=== PATIENT | female | born 1965 | race Caucasian/White ===

== ENCOUNTER 2017-02-02 19:08 | Emergency (ER) | payer OTHER, SELFPAY ==
--- NOTE | 2017-02-02 19:20 | ED ---
General Adult HPI - General Stated complaint: Chest Pain Time Seen by Provider: 02/02/17 19:17 Source: RN notes reviewed, old records reviewed - History of Present Illness Initial comments: This is a 31-year-old female here for reevaluation of chest pain. Chest pain shortness of breath and anxiety earlier today. Some indigestion as well. Patient does have history of high blood pressure. No prior history of heart disease or heart attack. Patient was able to walk off episode but is coming in [facility] for evaluation of chest pain - Related Data Home Medications Medication Instructions Recorded Confirmed Psyllium Husk 100% [Metamucil] 6 gm PO BID 08/12/15 02/02/17 Escitalopram Oxalate [Lexapro] 10 mg PO DAILY 02/02/17 02/02/17 Levothyroxine Sodium [Synthroid] 25 mcg PO DAILY 02/02/17 02/02/17 clonazePAM [KlonoPIN] 0.5 mg PO DAILY PRN 02/02/17 02/02/17 Allergies Allergy/AdvReac Type Severity Reaction Status Date / Time rofecoxib [From Vioxx] AdvReac Unknown Swelling Verified 02/02/17 19:18 Review of Systems ROS Statement: Those systems with pertinent positive or pertinent negative responses have been documented in the HPI. ROS Other: All systems not noted in ROS Statement are negative. Past Medical History Past Medical History: Blood Disorder, COPD, Fibromyalgia, GERD/Reflux, Osteoarthritis (OA), Thyroid Disorder Additional Past Medical History / Comment(s): MIGRAINES , PERFORATED BOWEL WITH COLOSTOMY & REVERSAL, HX OF KIDNEY STONES , HERNIATED DISC, "SLIGHT COPD", hx. clotting disorder-not sure what it's called-has never had any problems-sister has also History of Any Multi-Drug Resistant Organisms: None Reported Past Surgical History: Appendectomy, Bowel Resection, Cholecystectomy, Hernia Repair Additional Past Surgical History / Comment(s): BOWEL RESECTION w/COLOSTOMY ( SEPTEMBER 2014) AND REVERSAL (JAN 2015), D & C, LAPAROSCOPIES FOR PROBLEMS WITH INFERTILITY, 1 SALPINGECTOMY & OOPHERECTOMY. Past Anesthesia/Blood Transfusion Reactions: No Reported Reaction, Motion Sickness Additional Past Anesthesia/Blood Transfusion Reaction / Comment(s): CLAUSTROPHOBIA Past Psychological History: Anxiety, Depression Additional Psychological History / Comment(s): PAST HX OF ANXIETY/DEPRESSION WITH PAST SURGERY. NO PROBLEM NOW. Smoking Status: Former smoker Past Alcohol Use History: Occasional Additional Past Alcohol Use History / Comment(s): quit smoking 1999, smoked 20 years.SMOKED 1PPD. Past Drug Use History: None Reported - Past Family History Father Family Medical History: Myocardial Infarction ([place]) Additional Family Medical History / Comment(s): HIP REPLACEMNET, LOW BP Mother Family Medical History: Diabetes Mellitus Additional Family Medical History / Comment(s): DIVERTICULITIS,MIGRAINES. General Exam General appearance: alert, in no apparent distress Head exam: Present: atraumatic, normocephalic, normal inspection Eye exam: Present: normal appearance, PERRL, EOMI. Absent: scleral icterus, conjunctival injection, periorbital swelling ENT exam: Present: normal exam, mucous membranes moist Neck exam: Present: normal inspection. Absent: tenderness, meningismus, lymphadenopathy Respiratory exam: Present: normal lung sounds bilaterally. Absent: respiratory distress, wheezes, rales, rhonchi, stridor Cardiovascular Exam: Present: regular rate, normal rhythm, normal heart sounds. Absent: systolic murmur, diastolic murmur, rubs, gallop, clicks GI/Abdominal exam: Present: soft, normal bowel sounds. Absent: distended, tenderness, guarding, rebound, rigid Extremities exam: Present: normal inspection, full ROM, normal capillary refill. Absent: tenderness, pedal edema, joint swelling, calf tenderness Back exam: Present: normal inspection Neurological exam: Present: alert, oriented X3, CN II-XII intact Psychiatric exam: Present: normal affect, normal mood Skin exam: Present: warm, dry, intact, normal color. Absent: rash Course Vital Signs 02/02/17 02/02/17 19:14 20:22 Temperature 97.8 F Pulse Rate 77 84 Respiratory 16 18 Rate Blood Pressure 163/88 163/82 O2 Sat by Pulse 95 98 Oximetry - Reevaluation(s) Reevaluation #1: 02/02/17 20:53 Patient's asymptomatic at this point EKG Findings - EKG Comments: EKG Findings:: EKG shows normal sinus rhythm at 75, IA 150, QRS 84, QTC 433 Medical Decision Making - Medical Decision Making 51 female in the ER for evaluation of occurred earlier in the day, at this time is resolved and remained resolved, thinks maybe medication reaction CT negative lab work normal EKG and troponin are negative patient will be discharged home - Lab Data Result diagrams: 02/02/17 19:35 02/02/17 19:35 Lab Results 02/02/17 02/02/17 02/02/17 Range/Units 19:35 19:35 19:35 WBC 10.1 (3.8-10.6) k/uL RBC 5.14 (3.80-5.40) m/uL Hgb 16.1 H (11.4-16.0) gm/dL Hct 46.6 H (34.0-46.0) % MCV 90.5 (80.0-100.0) fL MCH 31.4 (25.0-35.0) pg MCHC 34.6 (31.0-37.0) g/dL RDW 12.4 (11.5-15.5) % Plt Count 287 (150-450) k/uL Neutrophils % 69 % Lymphocytes % 23 % Monocytes % 4 % Eosinophils % 2 % Basophils % 1 % Neutrophils # 7.0 (1.3-7.7) k/uL Lymphocytes # 2.4 (1.0-4.8) k/uL Monocytes # 0.4 (0-1.0) k/uL Eosinophils # 0.2 (0-0.7) k/uL Basophils # 0.1 (0-0.2) k/uL PT (9.0-12.0) sec INR (<1.2) APTT (22.0-30.0) sec D-Dimer (<0.60) mg/L FEU Sodium 140 (137-145) mmol/L Potassium 5.0 (3.5-5.1) mmol/L Chloride 103 (98-107) mmol/L Carbon Dioxide 27 (22-30) mmol/L Anion Gap 10 mmol/L BUN 10 (7-17) mg/dL Creatinine 0.79 (0.52-1.04) mg/dL Est GFR (MDRD) Af Amer >60 (>60 ml/min/1.73 sqM) Est GFR (MDRD) Non-Af >60 (>60 ml/min/1.73 sqM) Glucose 84 (74-99) mg/dL Calcium 10.3 H (8.4-10.2) mg/dL Magnesium 1.9 (1.6-2.3) mg/dL Total Bilirubin 0.6 (0.2-1.3) mg/dL AST 38 H (14-36) U/L ALT 45 (9-52) U/L Alkaline Phosphatase 93 (38-126) U/L Total Creatine Kinase 65 (30-135) U/L CK-MB (CK-2) 0.3 (0.0-2.4) ng/mL CK-MB (CK-2) Rel Index 0.5 Troponin I <0.012 (0.000-0.034) ng/mL Total Protein 8.6 H (6.3-8.2) g/dL Albumin 4.7 (3.5-5.0) g/dL Lipase 131 (23-300) U/L 02/02/17 Range/Units 19:35 WBC (3.8-10.6) k/uL RBC (3.80-5.40) m/uL Hgb (11.4-16.0) gm/dL Hct (34.0-46.0) % MCV (80.0-100.0) fL MCH (25.0-35.0) pg MCHC (31.0-37.0) g/dL RDW (11.5-15.5) % Plt Count (150-450) k/uL Neutrophils % % Lymphocytes % % Monocytes % % Eosinophils % % Basophils % % Neutrophils # (1.3-7.7) k/uL Lymphocytes # (1.0-4.8) k/uL Monocytes # (0-1.0) k/uL Eosinophils # (0-0.7) k/uL Basophils # (0-0.2) k/uL PT 10.3 (9.0-12.0) sec INR 1.0 (<1.2) APTT 21.4 L (22.0-30.0) sec D-Dimer 0.44 (<0.60) mg/L FEU Sodium (137-145) mmol/L Potassium (3.5-5.1) mmol/L Chloride (98-107) mmol/L Carbon Dioxide (22-30) mmol/L Anion Gap mmol/L BUN (7-17) mg/dL Creatinine (0.52-1.04) mg/dL Est GFR (MDRD) Af Amer (>60 ml/min/1.73 sqM) Est GFR (MDRD) Non-Af (>60 ml/min/1.73 sqM) Glucose (74-99) mg/dL Calcium (8.4-10.2) mg/dL Magnesium (1.6-2.3) mg/dL Total Bilirubin (0.2-1.3) mg/dL AST (14-36) U/L ALT (9-52) U/L Alkaline Phosphatase (38-126) U/L Total Creatine Kinase (30-135) U/L CK-MB (CK-2) (0.0-2.4) ng/mL CK-MB (CK-2) Rel Index Troponin I (0.000-0.034) ng/mL Total Protein (6.3-8.2) g/dL Albumin (3.5-5.0) g/dL Lipase (23-300) U/L - Radiology Data Radiology results: report reviewed (Chest x-ray CT chest negative for acute disease), image reviewed Disposition Clinical Impression: Atypical chest pain, Chest pain Disposition: HOME SELF-CARE Condition: Good Instructions: Chest Pain (ED) Referrals: Yvon Meraz DO [Primary Care Provider] - 1-2 days
[2017-02-02] MEDS ORDERED: RX INFO: IV CONTRAST WAS GIVEN 1 EACH MISC MISCELLANE PRN (19:43)
[2017-02-02 19:45] LABS: Basophils # (A) 0.1 k/uL (0-0.2); Basophils % (A) 1 %; CH 30.8; CHCM 34.2; Eosinophils # (A) 0.2 k/uL (0-0.7); Eosinophils % (A) 2 %; HCT 46.6 % (34.0-46.0); HDW 2.46; HGB 16.1 gm/dL (11.4-16.0); Luc # (Auto) 0.18; Luc % (Auto) 2; Lymphocytes # (A) 2.4 k/uL (1.0-4.8); Lymphocytes % (A) 23 %; MCH 31.4 pg (25.0-35.0); MCHC 34.6 g/dL (31.0-37.0); MCV 90.5 fL (80.0-100.0); Mean Platelet Volume 7.2; Monocytes # (A) 0.4 k/uL (0-1.0); Monocytes % (A) 4 %; Neutrophils % (A) 69 %; RBC 5.14 m/uL (3.80-5.40); RDW 12.4 % (11.5-15.5); WBC 10.1 k/uL (3.8-10.6); WBC (Perox) 9.69
[2017-02-02 19:56] LABS: ALT 45 U/L (9-52); AST 38 U/L (14-36); Alkaline Phosphatase 93 U/L (38-126); Anion Gap 10 mmol/L; Blood Urea Nitrogen 10 mg/dL (7-17); Calcium 10.3 mg/dL (8.4-10.2); Carbon Dioxide 27 mmol/L (22-30); Chloride 103 mmol/L (98-107); Glucose 84 mg/dL (74-99); Magnesium 1.9 mg/dL (1.6-2.3); Non-African American GFR(MDRD) >60 (>60 ml/min/1.73 sqM); Sodium 140 mmol/L (137-145); Total Bilirubin 0.6 mg/dL (0.2-1.3); Total Protein 8.6 g/dL (6.3-8.2)
--- NOTE | 2017-02-02 19:59 | XR ---
EXAMINATION TYPE: XR chest 2V DATE OF EXAM: 02/02/2017 COMPARISON: 12/20/2014 HISTORY: Chest pain TECHNIQUE: Frontal and lateral views of the chest are obtained. FINDINGS: There is no heart failure nor confluent pneumonic infiltrate. Heart size is normal. Medias tinum is normal. There is no pleural effusion. IMPRESSION: No active cardiopulmonary disease. There is clearing of mild atelectasis at left lung ba se compared to old exam.
[2017-02-02 20:11] LABS: Creatine Kinase 65 U/L (30-135)
[2017-02-02 20:24] LABS: Creatine Kinase MB 0.3 ng/mL (0.0-2.4); Troponin I <0.012 ng/mL (0.000-0.034)
--- NOTE | 2017-02-02 20:27 | CT ---
EXAMINATION TYPE: CT angio chest DATE OF EXAM: 02/02/2017 8:12 PM COMPARISON: 11/03/2014 HISTORY: Mid chest pain with shortness of breath CT DLP: 578.5 mGycm Automated exposure control for dose reduction was used. CONTRAST: CTA scan of the thorax is performed with IV Contrast, patient injected with 100 mL of Omnipaque 350, pulmonary embolism protocol. There are 3-D post processed images.. FINDINGS: There is mild reticular infiltrate in the anterior segment right upper lobe. There is minimal emphyse ma. There is no evidence of a pulmonary mass. There is mild reticular density in the lingula left upp er lobe. There is no pleural effusion. Heart size is normal. There is no pericardial effusion. I see no filling defects in the pulmonary arteries. There are no hilar masses. There is no mediastinal salvador opathy. There is no sign of aneurysm or dissection. IMPRESSION: NO EVIDENCE OF PULMONARY EMBOLISM. MILD SCARRING IN THE ANTERIOR RIGHT UPPER LOBE AND LINGULA LEFT UPPER LOBE THAT IS NOT SIGNIFICANTLY DIFFERENT THAN LAST EXAM. MINIMAL EMPHYSEMA.
[2017-02-02 20:34] LABS: Partial Thromboplastin Time 21.4 sec (22.0-30.0); Prothrombin Time 10.3 sec (9.0-12.0)
[2017-02-02 20:41] VITALS: RESP 18
[2017-02-02 21:08] VITALS: BP 152/74; PULSE 66; TEMP 97.7
== END 2017-02-02 21:08 | disposition home or self-care (01) ==
LOC: EC 19:08
DX: R07.89 Other chest pain (principal); R06.02 Shortness of breath; K30 Functional dyspepsia; F41.9 Anxiety disorder, unspecified; E07.9 Disorder of thyroid, unspecified; F32.9 Major depressive disorder, single episode, unspecified; Z87.891 Personal history of nicotine dependence; Z79.899 Other long term (current) drug therapy; Z88.6 Allergy status to analgesic agent; Z90.49 Acquired absence of other specified parts of digestive tract; Z82.49 Family history of ischemic heart disease and other diseases of the circulatory system
CPT/HCPCS: 36415; 93005; 85379; 80053; 82550; 82553; 83690; 83735; 84484; 85025; 85610; 85730; 71020; 71275; 99285; Q9967

== ENCOUNTER → 2017-03-14 | Outpatient (CLI) | payer OTHER ==
--- NOTE | 2017-03-14 08:30 | MM ---
Reason for exam: additional evaluation requested from prior study. Last mammogram was performed 1 year ago. History: Patient is postmenopausal and had first child at age 30. Benign right mammotome panel of the right breast, April 10, 2012. Cyst aspiration of the left breast. Took estrogen for 10 years. Physical Findings: Nurse did not find any significant physical abnormalities on exam. MG Diagnostic Mammo w CAD DAGOBERTO Bilateral CC and MLO view(s) were taken. Prior study comparison: March 26, 2016, bilateral MG diagnostic mammo w CAD DAGOBERTO. February 25, 2015, bilateral MG diagnostic mammo w CAD DAGOBERTO. March 24, 2012, [facility] DIGITAL RIGHT MAMMOGRAM w/CAD. March 16, 2012, bilateral digital screening mammo w/CAD. There are scattered fibroglandular densities. No significant new findings when compared with previous films. These results were verbally communicated with the patient and result sheet given to the patient on 03/14/17. ASSESSMENT: Negative, BI-RAD 1 RECOMMENDATION: Routine screening mammogram of both breasts in 1 year.
== END | disposition home or self-care (01) ==
LOC: RADMAMWWP 07:19
PROVIDERS: ATTEND Family Medicine
DX: R92.2 Inconclusive mammogram (principal)

== ENCOUNTER 2017-03-23 08:05 | Day surgery (SDC) | payer OTHER ==
[2017-03-21 13:05] VITALS: BMI 40.2
[~2017-03-23 08:05] MED LIST: LACTATED RINGERS 1,000 ML IV SCH; LIDOCAINE 1% 20 ML VIAL (10MG/ML) FOR IV START INTRADERMA PRN
[2017-03-23 08:30] VITALS: RESP 16; TEMP 97
[2017-03-23] MEDS ORDERED: PROPOFOL 10 MG/ML 20 ML VIAL IV ONE (08:50)
[2017-03-23] MEDS ORDERED: LIDOCAINE 1% INJ 10MG/ML (20 ML MDV) ONE (08:50)
--- NOTE | 2017-03-23 09:07 | P.OP ---
Date of Procedure: 03/23/17 Preoperative Diagnosis: Morbid obesity BMI 40.2 Recurrent incisional hernia Postoperative Diagnosis: Same Procedure(s) Performed: EGD with biopsy Implants: NA Anesthesia: MAC Surgeon: Pema Wick Pathology: other Condition: stable Disposition: PACU Indications for Procedure: 52 years old female with morbid obesity BMI 40.2 presents for EGD for bariatric surgery evaluation Description of Procedure: A timeout was performed to verify the correct patient and correct procedure. Patient was on continuous vitals and pulse ox monitoring throughout the procedure. She was placed in lateral decubitus position and an oral bite block was inserted. A well-lubricated Olympus upper endoscope was passed orally. The esophagus was intubated without difficulty. The vocal cords were visualised and protected at all times. The endoscope was passed beyond the pylorus into the first and second portion of the duodenum. No abnormality was noted in the duodenum mucosa. Two random biopsies were taken from the gastric antrum using cold biopsy forceps. The scope was then retroflexed. Small hiatal was noted which is Hill Grade I. No mass, active ulcer or bleeding stigmata noted within the gastric lumen. Mild diffuse gastritis noted The GE junction is measured at 36 cm from the incisors and diaphragmatic impression at 34 cm No evidence of reflux esophagitis.Biopsy taken from GE junction using cold biopsy forceps. The endoscope was gradually withdrawn. No abnormality was identified in the esophagus. Patient tolerated the procedure well and was taken to post anesthesia care unit in stable condition. FINAL DIAGNOSIS: MILD gastritis Hill Grade 1 Hiatal hernia SPECIMEN: Antral biopsy GE junction bx Final Pathologic Diagnosis A. GASTRIC ANTRUM, BIOPSY: MINIMAL CHRONIC GASTRITIS. IMMUNOPEROXIDASE STAIN NEGATIVE FOR HELICOBACTER PYLORI ORGANISMS (CONTROLS APPROPRIATE). B. GASTROESOPHAGEAL JUNCTION, BIOPSY: MATURE SQUAMOUS MUCOSA WITH FEATURES OF MILD CHRONIC ESOPHAGITIS. ADJACENT GASTRIC GLANDULAR MUCOSA WITH MILD CHRONIC INFLAMMATION. NEGATIVE FOR INTESTINAL METAPLASIA.
[2017-03-23 09:40] VITALS: BP 120/73; PULSE 71
== END 2017-03-23 10:04 | disposition home or self-care (01) ==
LOC: ORWHC2ENDO 08:05
PROVIDERS: ATTEND Surgery
DX: E66.01 Morbid (severe) obesity due to excess calories (principal); Z68.41 Body mass index [BMI] 40.0-44.9, adult; K44.9 Diaphragmatic hernia without obstruction or gangrene; E07.9 Disorder of thyroid, unspecified; K29.50 Unspecified chronic gastritis without bleeding; F32.9 Major depressive disorder, single episode, unspecified; K43.2 Incisional hernia without obstruction or gangrene; J44.9 Chronic obstructive pulmonary disease, unspecified; K21.0 Gastro-esophageal reflux disease with esophagitis; F41.9 Anxiety disorder, unspecified; Z88.8 Allergy status to other drugs, medicaments and biological substances; Z87.891 Personal history of nicotine dependence; Z79.899 Other long term (current) drug therapy
CPT/HCPCS: 43239; 88305; 88342; J2001; J2704

== ENCOUNTER → 2017-04-18 | Outpatient (CLI) | payer OTHER ==
[2017-04-18 08:33] VITALS: BP 149/77; PULSE 86; RESP 16; TEMP 98.1; BMI 41.4
--- NOTE | 2017-04-18 09:08 | P.GSHP ---
History of Present Illness H&P Date: 04/18/17 52 yrs old female presents with recurrent incisional hernia.CT scan from 2015 reviewed. Libby procedure with colostomy reversal in 2014. Lap lysis of adhesions and hernia repair in 08/[address] West.Prior cholecystectomy. No bowel obstruction. No abdominal pain. Unable to maintain sustained weight loss with diet and lifestyle changes . S/P EGD Preop Visit #1 , 03/14/17, weight 105.86KG, BMI 42 Preop visit#2, 04/18/17, weight 104.49 KG, BMI 41.5 - Review of Systems Comment: Constitutional: No fever, chills or rigors. No weight loss or loss of appetite. HEENT: No difficulty with hearing, vision and swallowing. Lymphatic: No axillary, inguinal and cervical swellings. Endocrine: Hypothyroidism. Denies history of diabetes. Respiratory: No chest pain, shortness of breath, and cough. No hemoptysis. Cardiovascular: No palpitations, irregular HR Gastrointestinal: Denies heartburn. No change in bowel habits. No nausea or vomiting. Genitourinary: No increase in urinary frequency or urgency. No hematuria. Musculoskeletal: No back pain, joint stiffness or pain. Neurologic: No history of seizure disorder and headaches. Psychiatric: Denies depression or anxiety . No suicidal ideation. Hematologic: Denies any abnormal mucosal bleeding or easy bruising. Past Medical History Past Medical History: Blood Disorder, COPD, Fibromyalgia, GERD/Reflux, Osteoarthritis (OA), Thyroid Disorder Additional Past Medical History / Comment(s): PAST HX OF MIGRAINES., DIVERTICULITIS WITH PERFORATED BOWEL & COLOSTOMY & REVERSAL, HX OF KIDNEY STONES , HERNIATED DISC, "MILD COPD", MTHFR GENE- NO HX OF BLOOD CLOTS BUT STATES SHE IS HAS APPT WITH DR. HAIDER. SISTER HAS MTHFR ALSO. , STATES INCISIONAL HERNIA LEFT LOWER ABD. History of Any Multi-Drug Resistant Organisms: None Reported Past Surgical History: Appendectomy, Bowel Resection, Cholecystectomy, Hernia Repair Additional Past Surgical History / Comment(s): BOWEL RESECTION w/COLOSTOMY ( SEPTEMBER 2014) AND REVERSAL (JAN 2015), D & C, LAPAROSCOPIES FOR PROBLEMS WITH INFERTILITY, 1 SALPINGECTOMY & BOTH OVARIES REMOVED. Past Anesthesia/Blood Transfusion Reactions: No Reported Reaction, Motion Sickness Additional Past Anesthesia/Blood Transfusion Reaction / Comment(s): CLAUSTROPHOBIA Past Psychological History: Anxiety Additional Psychological History / Comment(s): PAST HX OF ANXIETY/DEPRESSION WITH PAST SURGERY. NO PROBLEM NOW. Smoking Status: Former smoker Past Alcohol Use History: Occasional Additional Past Alcohol Use History / Comment(s): quit smoking 1999, smoked 20 years.SMOKED 1PPD. Past Drug Use History: None Reported - Past Family History Sister(s) Family Medical History: Blood Disorder, Myocardial Infarction ([place]) Additional Family Medical History / Comment(s): MTHFR BLOOD DISORDER Father Family Medical History: Myocardial Infarction ([place]) Additional Family Medical History / Comment(s): HIP REPLACEMNET, LOW BP Mother Family Medical History: Diabetes Mellitus Additional Family Medical History / Comment(s): DIVERTICULITIS,MIGRAINES. Medications and Allergies Home Medications Medication Instructions Recorded Confirmed Type Psyllium Husk 100% [Metamucil] 6 gm PO BID 08/12/15 03/21/17 History Escitalopram Oxalate [Lexapro] 10 mg PO DAILY 02/02/17 03/21/17 History Levothyroxine Sodium [Synthroid] 25 mcg PO DAILY 02/02/17 03/21/17 History clonazePAM [KlonoPIN] 0.5 mg PO DAILY PRN 02/02/17 03/21/17 History Multivitamins, Thera [Multivitamin 1 tab PO DAILY 03/21/17 03/21/17 History (formulary)] Turmeric (Unknown Dose) 1 tab PO DAILY 03/21/17 History Pantoprazole Sodium [Protonix] 40 mg PO DAILY #30 tablet. 03/23/17 Rx Allergies Allergy/AdvReac Type Severity Reaction Status Date / Time rofecoxib [From Vioxx] AdvReac Unknown Swelling Verified 03/23/17 08:24 Surgical - Exam Vital Signs Temp Pulse Resp BP 98.1 F 86 16 149/77 04/18/17 08:29 04/18/17 08:29 04/18/17 08:29 04/18/17 08:29 Patient is a 52-year-old female. Constitutional: General Appearance: healthy-appearing, well-nourished, and well- developed. Level of Distress: NAD. Ambulation: ambulating normally. Psychiatric: Insight: good judgement. Orientation: to time, place, and person. Head: Head: normocephalic and atraumatic. Eyes: Lids and Conjunctivae: no discharge or pallor and non-injected. Sclerae: non-icteric. ENMT: Oropharynx: moist mucous membranes. Abdomen: Bowel Sounds: normal. Inspection and Palpation: no tenderness or guarding and soft and non-distended. Hernia: incisional. Musculoskeletal:: Motor Strength and Tone: normal and normal tone. Joints, Bones , and Muscles: normal movement of all extremities. Extremities: no cyanosis or edema. Neurologic: Gait and Station: normal gait and station. Cranial Nerves: grossly intact. Assessment and Plan (1) Morbid obesity with BMI of 40.0-44.9, adult Current Visit: No Status: Acute Code(s): E66.01 - MORBID (SEVERE) OBESITY DUE TO EXCESS CALORIES; Z68.41 - BODY MASS INDEX (BMI) 40.0-44.9, ADULT SNOMED Code(s): 787734873 Plan: 1. Vitamin D deficiency 2. Pysch eval- no contraindication for sx 3. Supervised weight loss 4. Mammogram normal 5. No sleep study - no signs of sleep apnea 6. EGD with bx- no intestinal metaplasia 7. Plan for weightloss surgery i.e sleeve gastrectomy for usp weight loss followed by hernia repair as a second stage procedure 8. Informed consent obtained. Risks, benefits and potential complications discussed including bleeding, infection, leak, stenosis, stricture, DVT, PE, portal vein thrombosis and all indicated procedure and she elected to undergo lap sleeve gastrectomy possible open with lysis of adhesions
== END | disposition home or self-care (01) ==
LOC: BARWHC3 08:08
PROVIDERS: ATTEND Surgery
DX: E66.01 Morbid (severe) obesity due to excess calories (principal); Z68.41 Body mass index [BMI] 40.0-44.9, adult; K21.9 Gastro-esophageal reflux disease without esophagitis; J44.9 Chronic obstructive pulmonary disease, unspecified; M79.7 Fibromyalgia; F41.9 Anxiety disorder, unspecified; Z79.899 Other long term (current) drug therapy
CPT/HCPCS: 97804; 99211

== ENCOUNTER → 2017-05-26 | Outpatient (CLI) | payer OTHER ==
[2017-05-26 14:51] VITALS: BMI 38.6
== END | disposition home or self-care (01) ==
LOC: BARWHC3 14:00
PROVIDERS: ATTEND Surgery
DX: E66.01 Morbid (severe) obesity due to excess calories (principal); Z68.38 Body mass index [BMI] 38.0-38.9, adult
CPT/HCPCS: 97803

== ENCOUNTER → 2017-06-21 | Outpatient (CLI) | payer BC, OTHER ==
[2017-06-21 13:31] VITALS: BMI 37.8
== END | disposition home or self-care (01) ==
LOC: BARWHC3 12:41
PROVIDERS: ATTEND Surgery
DX: E66.01 Morbid (severe) obesity due to excess calories (principal); Z68.37 Body mass index [BMI] 37.0-37.9, adult
CPT/HCPCS: 97803

== ENCOUNTER → 2017-09-14 | Outpatient (CLI) | payer BC ==
[2017-09-14 14:59] VITALS: BMI 37.0
[2017-09-14 15:15] VITALS: BP 136/88; PULSE 86; RESP 16; TEMP 98.4
--- NOTE | 2017-10-01 21:12 | P.PN ---
Subjective Progress Note Date: 09/14/17 DATE OF SERVICE: 09/14/2017 REASON FOR VISIT: Status post sleeve gastrectomy HISTORY OF PRESENT ILLNESS: Ashly Serrano is a 52-year-old male who is status post sleeve gastrectomy 05/16/[address] Wick. She is 4 months postop. No reports of abdominal pain. No reports of nausea and vomiting. She reports past history of bowel perforation with colostomy including having a cholecystectomy and previous hernia surgery. She reports new swelling at the left lower abdomen from her previous colostomy. No reports of gastroesophageal reflux disease. She is concerned of a hernia. Her highest recent weight was 234 pounds. Her body mass index was 42.1. At height of 5 feet 2.5 inches, ideal body weight is 135 pounds. She comes in 205 pounds. Body mass index is 37.0. Percent excess weight loss 29%. Lifetime weight loss 28 pounds. She has lost 4 pounds in 3 months. She is 70 pounds overweight. PAST MEDICAL HISTORY: 1. Morbid obesity. 2. Body mass index of 42.1 3. Hypothyroidism 4. Depression 5. Chronic pain syndrome 6. Chronic obstructive pulmonary disease 7. Gastroesophageal reflux disease 8. Migraines 9. Diverticulitis 10. Kidney stones 11. Degenerative joint disease 12. MTHFR blood disorder 13. Neurological disorder 14. Fibromyalgia 15. Osteoarthritis 16. Claustrophobia 17. Depression PAST SURGICAL HISTORY: 1. Appendectomy 2. Colon resection 3. Colostomy reversal 4. Cholecystectomy 5. Hernia repair 6. D&C 7. Oophorectomy HOME MEDICATIONS: 1. Metamucil 2. Multivitamin 3. Synthroid 4. [place] 5. Lexapro ALLERGIES: Refocoxib SOCIAL HISTORY: No active tobacco use. Past tobacco use. FAMILY HISTORY: No family history of ulcerative colitis disease or Crohn's disease. Family history of morbid obesity. No lupus in the family. No reports of stomach or esophageal cancer. Family history of diabetes type 2. History of cardiac disease. REVIEW OF ORGAN SYSTEMS: CONSTITUTIONAL: Her highest recent weight was 234 pounds. Her body mass index was 42.1. At height of 5 feet 2.5 inches, ideal body weight is 135 pounds. She comes in 205 pounds. Body mass index is 37.0. Percent excess weight loss 29%. Lifetime weight loss 28 pounds. She has lost 4 pounds in 3 months. She is 70 pounds overweight. HEENT: Denies any active troubles with vision or hearing. No troubles with swallowing. ENDOCRINE: No diabetes. No hypothyroidism. CARDIOVASCULAR: No reports of palpitations or heart attacks or chest pain. RESPIRATORY: No obstructive sleep apnea. No asthma. GI: Denies any bright red blood per rectum. No diarrhea or constipation. MUSCULOSKELETAL: Has lower back pain and joint pain. Has osteoarthritis of the knees. NEURO: No headaches. No seizure disorders. PSYCH: No depression or suicidal ideation. RHEUMATOLOGIC: No lupus. No rheumatoid arthritis. HEMATOLOGIC: Denies any abnormal bleeding or bruising. No personal history of DVTs. SKIN: No rash. No skin cancer. PHYSICAL EXAM: VITAL SIGNS: Height 5 foot 2.5 inches, weight 205 pounds. BMI 37.0 Vital Signs Temp 98.4 F 09/14/17 15:11 Pulse 86 09/14/17 15:11 Resp 16 09/14/17 15:11 BP 136/88 09/14/17 15:11 Pulse Ox GENERAL: Well-developed in no acute distress. HEENT: No scleral icterus. Extraocular movements grossly intact. Hears conversational speech. No nasal drainage. NECK: Supple without lymphadenopathy. CHEST: Nonlabored respirations with equal bilateral excursions. CARDIOVASCULAR: Regular rate and regular rhythm. Distal 2+ pulses. ABDOMEN: Obese, soft, nontender, nondistended. Left lower quadrant incisional hernia. MUSCULOSKELETAL: No clubbing, cyanosis. Gross strength 5/5 distal lower extremities. No pre-tibial pitting edema. NEURO: No focal or lateralizing signs. Cranial nerves 2 through 12 grossly within normal limits. PSYCH: Appropriate affect. Alert and oriented to person, place and time. SKIN: Good skin turgor. Well perfused. ASSESSMENT: 1. Morbid obesity. 2. Body mass index of 42.1 to 37.0 3. Hypothyroidism 4. Depression 5. Chronic pain syndrome 6. Chronic obstructive pulmonary disease 7. Gastroesophageal reflux disease 8. Migraines 9. Diverticulitis 10. Kidney stones 11. Degenerative joint disease 12. MTHFR blood disorder 13. Neurological disorder 14. Fibromyalgia 15. Osteoarthritis 16. Claustrophobia 17. Depression 18. Epigastric abdominal pain 19. Incisional hernia, left lower quadrant 20. Status post sleeve gastrectomy PLAN: 1. Recommend bariatric metabolic panel 2. Recommend incisional hernia repair left lower quadrant. Robotic-assisted approach described. 3. Recommend CT of the abdomen and pelvis to evaluate for incarcerated intestine 4. DVT prophylaxis 5. Antibiotic prophylaxis Objective - Vital Signs Vital signs: Intake & Output 09/13/17 09/14/17 09/14/17 18:59 06:59 18:59 Weight 93.349 kg
== END | disposition home or self-care (01) ==
LOC: BARWHC3 14:38
PROVIDERS: ATTEND Surgery Plastic and Reconstructive Surgery
DX: Z48.815 Encounter for surgical aftercare following surgery on the digestive system (principal); E66.01 Morbid (severe) obesity due to excess calories; E03.9 Hypothyroidism, unspecified; F32.9 Major depressive disorder, single episode, unspecified; G89.4 Chronic pain syndrome; J44.9 Chronic obstructive pulmonary disease, unspecified; K21.9 Gastro-esophageal reflux disease without esophagitis; G43.909 Migraine, unspecified, not intractable, without status migrainosus; K57.92 Diverticulitis of intestine, part unspecified, without perforation or abscess without bleeding; N20.0 Calculus of kidney; M19.90 Unspecified osteoarthritis, unspecified site; E72.12 Methylenetetrahydrofolate reductase deficiency; R29.90 Unspecified symptoms and signs involving the nervous system; M79.7 Fibromyalgia; F40.240 Claustrophobia; R13.10 Dysphagia, unspecified; K43.2 Incisional hernia without obstruction or gangrene; Z98.84 Bariatric surgery status; Z68.37 Body mass index [BMI] 37.0-37.9, adult; Z88.8 Allergy status to other drugs, medicaments and biological substances; Z79.891 Long term (current) use of opiate analgesic; Z79.899 Other long term (current) drug therapy; Z71.3 Dietary counseling and surveillance
CPT/HCPCS: 97803; 99211

== ENCOUNTER → 2017-09-14 | Outpatient (CLI) | payer BC ==
[2017-09-14 15:06] LABS: HCT 46.1 % (34.0-46.0); HGB 15.8 gm/dL (11.4-16.0); MCH 31.2 pg (25.0-35.0); MCHC 34.4 g/dL (31.0-37.0); MCV 90.8 fL (80.0-100.0); Platelet Count 232 k/uL (150-450); RBC 5.08 m/uL (3.80-5.40); RDW 12.4 % (11.5-15.5); WBC 7.3 k/uL (3.8-10.6)
[2017-09-14 15:26] LABS: ALT 29 U/L (9-52); AST 30 U/L (14-36); Albumin 4.5 g/dL (3.5-5.0); Alkaline Phosphatase 91 U/L (38-126); Anion Gap 16 mmol/L; Blood Urea Nitrogen 17 mg/dL (7-17); Calcium 10.4 mg/dL (8.4-10.2); Carbon Dioxide 25 mmol/L (22-30); Chloride 103 mmol/L (98-107); Glucose 111 mg/dL (74-99); Magnesium 1.8 mg/dL (1.6-2.3); Phosphorus 4.2 mg/dL (2.5-4.5); Potassium 4.1 mmol/L (3.5-5.1); Sodium 144 mmol/L (137-145); Total Bilirubin 0.3 mg/dL (0.2-1.3); Total Protein 8.1 g/dL (6.3-8.2)
[2017-09-14 19:02] LABS: Iron Saturation 25.87 (12.00-45.00)
[2017-09-14 19:12] LABS: Vitamin D 25 Hydroxy 75.5 ng/mL (30.0-100.0)
[2017-09-14 19:51] LABS: Parathyroid Hormone Intact 44.8 pg/mL (14.0-72.0)
[2017-09-15 12:31] LABS: Zinc, Serum 82 ug/dL (60-130)
[2017-09-16 08:45] LABS: Vitamin A 52 ug/dL (38-106)
== END | disposition home or self-care (01) ==
LOC: LABWHC1 14:09
PROVIDERS: ATTEND Surgery
DX: E66.01 Morbid (severe) obesity due to excess calories (principal)
CPT/HCPCS: 36415; 80053; 82306; 82525; 82607; 83540; 83550; 83735; 83970; 84100; 84134; 84255; 84425; 84443; 84590; 84630; 85027

== ENCOUNTER → 2017-11-09 | Outpatient (CLI) | payer BC | END | disposition home or self-care (01) | LOC: LABWHC1 12:00 | PROVIDERS: ATTEND Anesthesiology | DX: Z01.812 Encounter for preprocedural laboratory examination (principal); K43.2 Incisional hernia without obstruction or gangrene | CPT/HCPCS: 86850; 86900; 86901 ==

== ENCOUNTER 2017-11-14 08:02 | Day surgery (SDC) | payer BC ==
[2017-11-07 17:57] VITALS: BMI 36.0
--- NOTE | 2017-11-13 19:32 | P.GSHP ---
History of Present Illness H&P Date: 11/14/17 CHIEF COMPLAINT: Incisional hernia. HISTORY OF PRESENT ILLNESS: The patient is a 52-year-old female who presents with a history of swelling along the upper abdomen. Findings were consistent with possible ventral hernia. Now she presents for further evaluation and management. PAST MEDICAL HISTORY: Please see list. PAST SURGICAL HISTORY: Please see list. MEDICATIONS: Please see list. ALLERGIES: Please see list. SOCIAL HISTORY: No illicit drug use FAMILY HISTORY: No reports of Crohn disease or ulcerative colitis. REVIEW OF ORGAN SYSTEMS: CONSTITUTIONAL: No reports of fevers or chills. GI: Denies any blood in stools or constipation. PHYSICAL EXAM: VITAL SIGNS: Stable GENERAL: Well-developed pleasant female in no acute distress. HEENT: No scleral icterus. Extraocular movements grossly intact. Moist buccal mucosa. NECK: Supple without lymphadenopathy. CHEST: Unlabored respirations. Equal bilateral excursions. CARDIOVASCULAR: Regular rate and rhythm. Distal 2+ pulses. ABDOMEN: Soft, nondistended. Swelling along the upper abdomen. Protuberant. MUSCULOSKELETAL: No clubbing, cyanosis, or edema. ASSESSMENT: 1. Ventral hernia. 2. Morbid obesity due to excess calories, BMI 36.0 PLAN: 1. Recommend proceeding with robotic ventral hernia repair with mesh. 2. Benefits and risks of surgical intervention was discussed including possibility of open technique. 3. DVT prophylaxis. 4. Antibiotic prophylaxis. Past Medical History Past Medical History: Blood Disorder, COPD, Fibromyalgia, GERD/Reflux, Osteoarthritis (OA), Thyroid Disorder Additional Past Medical History / Comment(s): PAST HX OF MIGRAINES, KIDNEY STONES. DIVERTICULITIS W/ PERFORATION. HERNIATED DISC. "MILD COPD", PER CT SCAN. MTHFR GENE. SISTER HAS MTHFR ALSO. STATES INCISIONAL HERNIA LEFT LOWER ABD. History of Any Multi-Drug Resistant Organisms: None Reported Past Surgical History: Appendectomy, Bariatric Surgery, Bowel Resection, Cholecystectomy, Hernia Repair Additional Past Surgical History / Comment(s): BOWEL RESECTION w/COLOSTOMY ( SEPTEMBER 2014), REVERSAL (JAN 2015), D & C, LAPAROSCOPIES FOR PROBLEMS WITH INFERTILITY, 1 SALPINGECTOMY & BIIL OVARIES REMOVED. EGD. GASTRIC SLEEVE. Past Anesthesia/Blood Transfusion Reactions: No Reported Reaction, Motion Sickness Additional Past Anesthesia/Blood Transfusion Reaction / Comment(s): CLAUSTROPHOBIA. HARD IV START Smoking Status: Former smoker - Past Family History Sister(s) Family Medical History: Blood Disorder, Myocardial Infarction ([place]) Additional Family Medical History / Comment(s): MTHFR BLOOD DISORDER Father Family Medical History: Myocardial Infarction ([place]) Additional Family Medical History / Comment(s): HIP REPLACEMNET, LOW BP Mother Family Medical History: CVA/TIA, Diabetes Mellitus Additional Family Medical History / Comment(s): DIVERTICULITIS,MIGRAINES. Medications and Allergies Home Medications Medication Instructions Recorded Confirmed Type Psyllium Husk 100% [Metamucil 6 gm PO BID PRN 08/12/15 11/07/17 History Packet] Escitalopram Oxalate [Lexapro] 10 mg PO DAILY 02/02/17 11/07/17 History Levothyroxine Sodium [Synthroid] 25 mcg PO DAILY 02/02/17 11/07/17 History Multivitamins, Thera [Multivitamin 1 tab PO DAILY 03/21/17 11/07/17 History (formulary)] Biotin Unknown Dose 1 tab PO DAILY 11/07/17 History Calcium (Unknown Dose) 1 tab PO DAILY 11/07/17 History Vitamin B12 (Unknown Dose) 1 tab PO DAILY 11/07/17 History Vitamin D (Unknown Dose) 1 tab PO DAILY 11/07/17 History Allergies Allergy/AdvReac Type Severity Reaction Status Date / Time rofecoxib [From Vioxx] AdvReac Unknown Swelling Verified 11/07/17 17:28
[~2017-11-14 08:02] MED LIST changes: +ACETAMINOPHEN IV (For NPO) 1,000 MG in EMPTY BAG 1 BAG IVPB ONE; +ACETAMINOPHEN TAB 500 MG TAB PO ONE; +DEXAMETHASONE SOD PHOSPHATE 10 MG/ML 1 ML VIAL IV ONE; +HEPARIN SODIUM,PORCINE 5,000 UNIT/ML 1 ML VIAL SQ ONE; +HYDROmorphone 0.5 MG/0.5 ML SYRINGE IVP PRN; +IBUPROFEN IV 400 MG in SODIUM CHLORIDE 0.9% 250 ML IV ONE; +MIDAZOLAM 2 MG/2 ML VIAL IV PRN; +ONDANSETRON 4 MG/2 ML VIAL IVP ONE; +ONDANSETRON 4 MG/2 ML VIAL IVP PRN; +ceFAZolin IN SWFI 2 GM/20 ML SYRINGE IVP ONE; +fentaNYL (PF) 50 MCG/ML 2 ML AMP IV PRN
[2017-11-14] MEDS: SCOPOLAMINE 1.5MG/72HR PATCH TRANSDERM ONE ×2 (08:51→09:01)
[2017-11-14] MEDS ORDERED: LIDOCAINE 1% INJ 10MG/ML (20 ML MDV) ONE (10:45)
[2017-11-14] MEDS ORDERED: NEOSTIGMINE 1 MG/ML 10 ML VIAL ONE (10:45)
[2017-11-14] MEDS ORDERED: SUCCINYLCHOLINE CHLORIDE 100 MG/5 ML SYR IV ONE (10:45)
[2017-11-14] MEDS ORDERED: fentaNYL (PF) 50 MCG/ML 2 ML AMP ONE (10:45)
[2017-11-14] MEDS ORDERED: MIDAZOLAM 2 MG/2 ML VIAL ONE (10:45)
[2017-11-14] MEDS ORDERED: GLYCOPYRROLATE 0.2 MG/ML 2 ML VIAL ONE (10:45)
[2017-11-14] MEDS ORDERED: PROPOFOL 10 MG/ML 20 ML VIAL IV ONE (10:45)
[2017-11-14] MEDS ORDERED: HYDROmorphone (PF) 1 MG/ML ONE (10:45)
[2017-11-14] MEDS ORDERED: ROCURONIUM BROMIDE 10 MG/ML 10 ML VIAL IV ONE (10:45)
[2017-11-14] MEDS ORDERED: BUPIVACAINE (PF) 0.5% 30 ML VIAL SQ ONE (11:15)
[2017-11-14] MEDS ORDERED: LACTATED RINGERS 1,000 ML IV ONE (11:16)
[2017-11-14 14:00] VITALS: TEMP 98
--- NOTE | 2017-11-14 14:10 | P.PCN ---
Date of Procedure: 11/14/17 Preoperative Diagnosis: Incarcerated incisional hernia, recurrent Postoperative Diagnosis: Incarcerated incisional hernia, recurrent, 4 x 5 cm lower abdomen; severe intra- abdominal adhesions Procedure(s) Performed: Robotic-assisted extensive lysis of adhesions over 1.5 hours, robotic-assisted repair of recurrent incarcerated incisional hernia 4 x 5 cm using 11.[address] mesh Anesthesia: GETA, local Surgeon: Clair Sung Estimated Blood Loss (ml): 5 Pathology: none sent Condition: stable Disposition: same day Operative Findings: 1. Severe intra-abdominal adhesions from previous operation including prior mesh repair along the midline 2. New hernia defect along the inferior aspect of previous mesh consistent with recurrent incisional hernia 3. Small bowel incarcerated up recurrent incarcerated incisional hernia defect 4 x 5 cm 4. Extensive lysis of adhesions over 1.5 hours performed of greater omentum to abdominal wall as well as small bowel to abdominal wall without enterotomies 5. Defect closed with fascial lubrication followed by placement of mesh.
[2017-11-14 14:32] VITALS: RESP 16
[2017-11-14] MEDS ORDERED: HYDROcodone/APAP 7.5-325MG 1 EACH TAB PO ONE (15:31)
[2017-11-14 15:51] VITALS: BP 113/77; PULSE 81
--- NOTE | 2017-11-18 15:39 | P.OP ---
Date of Procedure: 11/14/17 Description of Procedure: Date of Procedure: 11/14/17 SURGEON: CLAIR SUNG MD PREOPERATIVE DIAGNOSES: 1. Incarcerated incisional hernia, recurrent lower abdomen 2. Chronic obstructive pulmonary disease 3. Fibromyalgia 4. Gastroesophageal reflux disease 5. Hypothyroidism 6. Diverticulosis 7. Hypercoaguable disorder 8. Kidney stones 9. Migraines 10. Multiple previous abdominal surgeries 11. Prior sleeve gastrectomy POSTOPERATIVE DIAGNOSES: 1. Incarcerated incisional hernia, recurrent, 4 x 5 cm lower abdomen 2. Chronic obstructive pulmonary disease 3. Fibromyalgia 4. Gastroesophageal reflux disease 5. Hypothyroidism 6. Diverticulosis 7. Hypercoaguable disorder 8. Kidney stones 9. Migraines 10. Multiple previous abdominal surgeries 11. Prior sleeve gastrectomy 12. Severe intra-abdominal adhesions with intraloop adhesions, small bowel to abdominal wall OPERATION: 1. Robotic-assisted [employer] laparoscopic extensive lysis of adhesions over 1.5 hours 2. Robotic-assisted [employer] laparoscopic repair of recurrent 4 cm x 5 cm incarcerated incisional hernia with mesh, ventralight ST mesh 11.4 cm Anesthesia: GETA, local Surgeon: Clair Sung Estimated Blood Loss (ml): 5 Pathology: none sent Condition: stable Disposition: same day COMPLICATIONS: None. Operative Findings: 1. Severe intra-abdominal adhesions from previous operation including prior mesh repair along the midline 2. New hernia defect along the inferior aspect of previous mesh consistent with recurrent incisional hernia 3. Small bowel incarceration involved in recurrent incisional hernia defect 4 x 5 cm 4. Extensive lysis of adhesions over 1.5 hours performed of greater omentum to abdominal wall as well as small bowel to abdominal wall without enterotomies 5. Defect closed with fascial lubrication followed by placement of mesh. INDICATIONS: The patient is a 52-year-old female who presents with pain along the mid to lower abdomen. Surgical intervention with laparoscopic versus robotic and open techniques were reviewed. Placement of mesh was also reviewed. Benefits and risks were thoroughly described. Informed consent was obtained. DESCRIPTION OF PROCEDURE: The patient was brought into the operating room and laid in supine position. After general induction, the abdomen had been prepped and draped in standard sterile fashion. Ioban draping was also placed. Prior to incision, a timeout protocol was confirmed with surgical team regarding the patient's name including procedures to be performed. The robot was primed prior to the procedure. A field block using local anesthetic was placed along hernia site including the proposed port sites. Initial incision was made with a #11 blade along the left upper quadrant. A 0 degree 5 mm laparoscopic trocar entry was performed. Diagnostic laparoscopy demonstrated moderate peritoneal adhesions involving the entire abdomen consistent with her previous mesh repair and prior multiple abdominal surgeries. Separately an incarcerated incisional hernia of the lower abdomen was identified at the inferior portion of her prior mesh repair. Two robotic 8-mm ports were initially placed along the left lateral abdominal wall as the 5-mm port of the left upper quadrant was exchanged. Placements of the ports were 15 cm from the target anatomy and approximately 10 cm apart. The [employer] robot was previously primed, prepped and draped then docked along the left side of the patient. I then sat at the robot [employer] console where working arms of the robot including Bovie cautery connected to robotic scissors, needle helper/driver, vessel sealer and graspers were exchanged by the senior office assistant. She had very dense adhesions of the epigastrium and left upper quadrant involving the greater omentum and transverse colon to the mesh of the abdominal wall that were addressed with a combination of sharp and blunt dissection for over 30 minutes using only 1 arm and the camera. Next the robot was re-docked along the upper abdomen with 8-mm trocars placed at the epigastrium and left upper quadrant. The bed was repositioned in steep Trendelenburg to address the rest of the adhesions of the lower abdomen. Next, additional extensive lysis of adhesions occurred over 1 hour to reduce the small bowel from the abdominal wall and intraloop adhesions without enterotomies. Complete lysis of adhesions occurred for 1.5 hrs. The fascial defect of 4 x 5 cm of the lower abdomen was identified .The incarcerated contents was reduced. The hernia defect was oversewn using #1 Stratafix with fascial imbrication x 3 to close and reinforce the defect. Insufflation was adjusted down to 8 mmHg pressure to accommodate repair. Next, ventralight ST mesh 11.4 cm was placed with the rough side towards the abdominal wall. 2-0 VLOC 9 inch sutures were used to fixate the mesh. A final endoscopic imaging was obtained. All instruments and pneumoperitoneum were evacuated from the abdominal cavity. The [employer] robot was undocked from the patient. I re-scrubbed into the case for closure of incisions. The incisions were reapproximated using 4-0 Monocryl in an interrupted subcuticular fashion. Liquid glue was applied to the skin after cleansing the skin with normal saline and dilute hydrogen peroxide. An abdominal binder was placed. At the end of the procedure, needle, sponge, and instrument count had been verified correct by weed science research technician. The patient was taken to the postanesthesia care unit in stable condition. Console time 115 minutes
== END 2017-11-14 16:33 | disposition home or self-care (01) ==
LOC: OR 08:02
PROVIDERS: ATTEND Surgery Plastic and Reconstructive Surgery
DX: K43.0 Incisional hernia with obstruction, without gangrene (principal); K66.0 Peritoneal adhesions (postprocedural) (postinfection); E66.01 Morbid (severe) obesity due to excess calories; Z68.36 Body mass index [BMI] 36.0-36.9, adult; J44.9 Chronic obstructive pulmonary disease, unspecified; M79.7 Fibromyalgia; K21.9 Gastro-esophageal reflux disease without esophagitis; M19.90 Unspecified osteoarthritis, unspecified site; E07.9 Disorder of thyroid, unspecified; Z87.442 Personal history of urinary calculi; Z87.891 Personal history of nicotine dependence; Z83.2 Family history of diseases of the blood and blood-forming organs and certain disorders involving the immune mechanism; Z79.890 Hormone replacement therapy; Z79.899 Other long term (current) drug therapy; Z88.6 Allergy status to analgesic agent
CPT/HCPCS: 49657; S2900; 86850; 86900; 86901

== ENCOUNTER → 2017-11-23 | Outpatient (CLI) | payer BC ==
--- NOTE | 2017-11-23 08:06 | P.PN ---
Subjective Progress Note Date: 11/23/17 HPI: Patient is doing very well after surgery. She is eager to return to swimming. NO problems with incisions. PLAN: 1. Recommend 75 gram protein daily 2. Ok to rertun to activity on 12/14/17
[2017-11-23 08:07] VITALS: BP 128/88; PULSE 89; RESP 16; TEMP 98.3; BMI 36.2
== END | disposition home or self-care (01) ==
LOC: BARWHC3 07:54
PROVIDERS: ATTEND Surgery Plastic and Reconstructive Surgery
DX: Z01.818 Encounter for other preprocedural examination (principal); E66.01 Morbid (severe) obesity due to excess calories; Z68.36 Body mass index [BMI] 36.0-36.9, adult
CPT/HCPCS: 97803; 99211

== ENCOUNTER → 2017-11-25 | Outpatient (CLI) | payer BC ==
[2017-11-25 11:37] LABS: HCT 44.3 % (34.0-46.0); HGB 14.5 gm/dL (11.4-16.0); MCH 30.7 pg (25.0-35.0); MCHC 32.7 g/dL (31.0-37.0); MCV 94.1 fL (80.0-100.0); Mean Platelet Volume 6.9; Platelet Count 430 k/uL (150-450); RBC 4.71 m/uL (3.80-5.40); RDW 12.5 % (11.5-15.5); WBC 9.4 k/uL (3.8-10.6)
[2017-11-25 11:44] LABS: Partial Thromboplastin Time 23.1 sec (22.0-30.0); Prothrombin Time 10.1 sec (9.0-12.0)
[2017-11-25 12:07] LABS: ALT 60 U/L (9-52); AST 46 U/L (14-36); Albumin 4.3 g/dL (3.5-5.0); Alkaline Phosphatase 153 U/L (38-126); Anion Gap 12 mmol/L; Blood Urea Nitrogen 20 mg/dL (7-17); Calcium 10.1 mg/dL (8.4-10.2); Carbon Dioxide 27 mmol/L (22-30); Chloride 101 mmol/L (98-107); Cholesterol 210 mg/dL (<200); Glucose 90 mg/dL (74-99); HDL Cholesterol 54 mg/dL (40-60); LDL Cholesterol,Calculated 128 mg/dL (0-99); Phosphorus 4.5 mg/dL (2.5-4.5); Potassium 4.8 mmol/L (3.5-5.1); Sodium 140 mmol/L (137-145); Total Bilirubin 0.3 mg/dL (0.2-1.3); Total Protein 7.5 g/dL (6.3-8.2); Triglycerides 139 mg/dL (<150)
[2017-11-25 17:15] LABS: Iron Saturation 21.99 (12.00-45.00)
[2017-11-25 17:24] LABS: Vitamin D 25 Hydroxy 73.5 ng/mL (30.0-100.0)
[2017-11-25 17:30] LABS: Parathyroid Hormone Intact 51.2 pg/mL (14.0-72.0)
[2017-11-25 17:38] LABS: Folate, Serum >24.0 ng/mL
[2017-11-25 18:40] LABS: Hemoglobin A1C 5.4 % (4.0-6.0)
== END | disposition home or self-care (01) ==
LOC: LABWHC1 10:53
PROVIDERS: ATTEND Surgery Plastic and Reconstructive Surgery
DX: E66.01 Morbid (severe) obesity due to excess calories (principal); E21.1 Secondary hyperparathyroidism, not elsewhere classified; D50.9 Iron deficiency anemia, unspecified; E89.1 Postprocedural hypoinsulinemia; K90.9 Intestinal malabsorption, unspecified; E55.9 Vitamin D deficiency, unspecified; K74.1 Hepatic sclerosis; N19 Unspecified kidney failure; K50.90 Crohn's disease, unspecified, without complications
CPT/HCPCS: 36415; 80053; 80061; 82306; 82525; 82607; 82728; 82746; 83036; 83540; 83550; 83735; 83970; 84100; 84134; 84255; 84425; 84443; 84590; 84630; 85027; 85610; 85730

== ENCOUNTER → 2018-09-21 | Outpatient (CLI) | payer OTHER ==
--- NOTE | 2018-09-21 08:55 | BD ---
EXAMINATION TYPE: Axial Bone Density DATE OF EXAM: 09/21/2018 COMPARISON: NONE CLINICAL HISTORY: Disorder of bone per order. Height: 62 Weight: 207.4 FRAX RISK QUESTIONS: Alcohol (3 or more units per day): no Family History (Parent hip fracture): no Glucocorticoids (More than 3mos): no (Ex: prednisone, prednisolone, methylprednisolone, dexamethasone, and hydrocortisone). History of Fracture in Adulthood: no Secondary Osteoporosis: 1. Type 1 Diabetes: no 2. Hyperthyroidism: no 3. Menopause before 45: no 4. Malnutrition: no 5. Chronic liver disease: no Rheumatoid Arthritis: no Current Tobacco Use: no RISK FACTORS HISTORY OF: Family History of Osteoporosis: no Active: sometimes Diet low in dairy products/other sources of calcium: no Postmenopausal woman: age 50 Lost more than 2 inches in height since high school: no MEDICATIONS: Thyroid Medications: thyroid How Lon years Additional History: EXAM MEASUREMENTS: Bone mineral densitometry was performed using the [employer] System. Bone mineral density as measured about the Lumbar spine is: ----- L1-L4(G/cm2): 1.188 T Score Values are as follows: ----- L2: -0.7 ----- L3: 0.4 ----- L4: 1.3 ----- L1-L4: 0.1 Bone mineral density : baseline Bone mineral density about the R hip (g/cm2): 0.867 Bone mineral density about the L hip (g/cm2): 0.942 T Score values are as follows: -----R Neck: -1.2 -----L Neck: -0.7 -----R Total: 0.3 -----L Total: 0.6 Bone mineral density : baseline IMPRESSION: Osteopenia (T Score between -2.5 and -1) femoral neck level in the right hip. There is slightly increased risk of fracture and the patient may be considered for treatment. Re-Screen 2-5 years. NOTE: T-SCORE=SD OF THE YOUNG ADULT MEAN.
--- NOTE | 2018-09-22 11:35 | MM ---
Reason for exam: screening (asymptomatic). Last mammogram was performed 1 year and 6 months ago. History: Patient is postmenopausal and had first child at age 30. Benign right mammotome panel of the right breast, April 10, 2012. Cyst aspiration of the left breast. Took estrogen for 10 years. Physical Findings: A clinical breast exam by your physician is recommended on an annual basis and results should be correlated with mammographic findings. MG Screening Mammo w CAD Bilateral CC and MLO view(s) were taken. XCCM view(s) were taken of the right breast. Prior study comparison: March 14, 2017, bilateral MG diagnostic mammo w CAD DAGOBERTO. March 26, 2016, bilateral MG diagnostic mammo w CAD DAGOBERTO. There are scattered fibroglandular densities. Surgical clip in right breast. No significant changes when compared with prior studies. ASSESSMENT: Benign, BI-RAD 2 RECOMMENDATION: Routine screening mammogram of both breasts in 1 year.
== END | disposition home or self-care (01) ==
LOC: RADBDWWP 08:06
PROVIDERS: ATTEND Family Medicine
DX: Z12.31 Encounter for screening mammogram for malignant neoplasm of breast (principal); M85.851 Other specified disorders of bone density and structure, right thigh
CPT/HCPCS: 77067; 77080

== ENCOUNTER → 2020-01-22 | Outpatient (CLI) | payer OTHER ==
[2020-01-22 07:36] LABS: HCT 49.3 % (34.0-46.0); HGB 15.5 gm/dL (11.4-16.0); MCH 30.9 pg (25.0-35.0); MCHC 31.4 g/dL (31.0-37.0); MCV 98.4 fL (80.0-100.0); Mean Platelet Volume 7.5; Platelet Count 244 k/uL (150-450); RBC 5.02 m/uL (3.80-5.40); RDW 12.4 % (11.5-15.5); WBC 7.8 k/uL (3.8-10.6)
[2020-01-22 11:09] LABS: INR 0.97 (0.90-1.11); Partial Thromboplastin Time 27.1 sec (24.7-29.9); Prothrombin Time 10.4 sec (9.9-11.9)
[2020-01-22 12:12] LABS: Ferritin 112.3 ng/mL (10.0-291.0)
[2020-01-22 12:13] LABS: % Iron Saturation 38.44 (12.00-45.00); African American GFR (CKD) 95.5 (60.0-200.0); Albumin 4.4 g/dL (3.80-4.90); Albumin/Globulin Ratio 1.63 (1.60-3.17); Anion Gap 9.4 mmol/L (4.00-12.00); BUN/Creat Ratio 18.75 Ratio (12.00-20.00); Calcium 9.7 mg/dL (8.7-10.3); Carbon Dioxide 27.6 mmol/L (21.6-31.8); Chol/HDL Ratio 2.97; Folate, Serum 12.6 ng/mL; Globulin 2.7 g/dL (1.6-3.3); LDL Cholesterol,Calculated 130.2 mg/dL (0.0-131.0); Non-African American GFR(CKD) 82.4 (60.0-200.0); Potassium 4.2 mmol/L (3.5-5.5); Total Bilirubin 0.6 mg/dL (0.2-1.2); Total Protein 7.1 g/dL (6.2-8.2); VLDL Calculation 19.8 mg/dL (5.00-40.00)
[2020-01-22 13:44] LABS: Hemoglobin A1C 5.7 % (4.0-6.0)
[2020-01-22 16:13] LABS: Magnesium 1.9 mg/dL (1.5-2.4); Phosphorus 3.6 mg/dL (2.4-5.1)
[2020-01-23 13:54] LABS: Zinc, Serum 76 ug/dL (60-130)
[2020-01-23 13:55] LABS: Vitamin A 57 ug/dL (38-106)
[2020-01-24 06:36] LABS: Vit B1(Thiamine) 65 ug/L (38-122)
[2020-01-25 02:49] LABS: Selenium 108 mcg/L (63-160)
== END | disposition home or self-care (01) ==
LOC: LABWHC1 07:02
PROVIDERS: ATTEND Surgery Plastic and Reconstructive Surgery
DX: D50.8 Other iron deficiency anemias (principal); E89.1 Postprocedural hypoinsulinemia; K90.89 Other intestinal malabsorption; E55.9 Vitamin D deficiency, unspecified; K74.1 Hepatic sclerosis; N19 Unspecified kidney failure; K50.90 Crohn's disease, unspecified, without complications; E21.1 Secondary hyperparathyroidism, not elsewhere classified; E66.01 Morbid (severe) obesity due to excess calories
CPT/HCPCS: 36415; 80053; 80061; 82306; 82525; 82607; 82728; 82746; 83036; 83540; 83550; 83735; 83970; 84100; 84134; 84255; 84425; 84443; 84590; 84630; 85027; 85610; 85730

== ENCOUNTER → 2020-01-29 | Outpatient (CLI) | payer OTHER ==
--- NOTE | 2020-01-29 15:20 | CT ---
EXAMINATION TYPE: CT abdomen pelvis w con DATE OF EXAM: 01/29/2020 HISTORY: Diverticulitis per order. Palpable mass right pelvic area per patient. CT DLP: 1869.0mGycm Automated Exposure Control for Dose Reduction was Utilized. CONTRAST: CT scan of the abdomen and pelvis is performed with IV Contrast, patient injected with 100 mL of Isov ue 300. COMPARISON: CT abdomen and pelvis May 27, 2016 FINDINGS: LUNG BASES: [id number]-[id number]-[id number] anterior bibasilar linear scarring and/or atelectasis. LIVER/GB: Stable prominent lobulated right hepatic lobe with absent or small left hepatic lobe. PANCREAS: No significant abnormality is seen. SPLEEN: Stable small splenule axial image 25. ADRENALS: No significant abnormality is seen. KIDNEYS: Symmetric cortical medullary uptake and excretion without hydronephrosis. BOWEL: Oral contrast reaches level of the mid transverse colon. No suspicious small or large bowel di latation. Interval gastric sleeve with new sutures along the left lateral aspect of the stomach. Evid ence of prior ventral wall hernia repair. Some scarring in the left lower anterior abdominal wall. Th ere is recurrent hernia defect in the right upper pelvic wall containing fat along with mesenteric ve ssels and contrast opacified nondilated ileal small bowel loop. Surgical sutures are seen in the sigm oid colon of the pelvis. There are some diverticula in the colon from this level to the splenic flexu re. No CT evidence for acute diverticulitis currently. UTERUS/ADNEXA: Anteverted uterus. Occasional scattered tiny right-sided pelvic phlebolith. Normal siz e ovaries. LYMPH NODES: No greater than 1cm abdominal or pelvic lymph nodes are appreciated. OSSEOUS STRUCTURES: Lsawyaeq-gj-ackjuy disc space narrowing with endplate sclerosis L4-L5 and L5-S1 l evels. OTHER: Small fat-containing incisional hernia axial image 43. IMPRESSION: 1. Recurrent right upper to mid pelvic ventral wall hernia containing fat along with tiny mesenteric vessels and ileal small bowel loop. No bowel obstruction currently. 2. Evidence of prior distal sigmoid colonic resection with some residual distal colonic diverticulosi s but no CT evidence for acute diverticulitis currently.
== END | disposition home or self-care (01) ==
LOC: RADCTMAIN 13:19
PROVIDERS: ATTEND Surgery Plastic and Reconstructive Surgery
DX: K57.30 Diverticulosis of large intestine without perforation or abscess without bleeding (principal); K43.9 Ventral hernia without obstruction or gangrene
CPT/HCPCS: 74177; Q9967

== ENCOUNTER → 2020-01-31 | Day surgery (SDC) | payer OTHER ==
[2020-01-28 15:25] VITALS: BMI 36.6
[~2020-01-31] MED LIST changes: -ACETAMINOPHEN IV (For NPO) 1,000 MG in EMPTY BAG 1 BAG IVPB ONE; -ACETAMINOPHEN TAB 500 MG TAB PO ONE; -DEXAMETHASONE SOD PHOSPHATE 10 MG/ML 1 ML VIAL IV ONE; -HEPARIN SODIUM,PORCINE 5,000 UNIT/ML 1 ML VIAL SQ ONE; -HYDROmorphone 0.5 MG/0.5 ML SYRINGE IVP PRN; -IBUPROFEN IV 400 MG in SODIUM CHLORIDE 0.9% 250 ML IV ONE; +LIDOCAINE 1% (10MG/ML) FOR IV START INTRADERMA ONE; -LIDOCAINE 1% 20 ML VIAL (10MG/ML) FOR IV START INTRADERMA PRN; +LIDOCAINE 1% INJ 10MG/ML (20 ML MDV) ONE; -MIDAZOLAM 2 MG/2 ML VIAL IV PRN; -ONDANSETRON 4 MG/2 ML VIAL IVP ONE; -ONDANSETRON 4 MG/2 ML VIAL IVP PRN; +PROPOFOL 10 MG/ML 20 ML VIAL IV ONE; -ceFAZolin IN SWFI 2 GM/20 ML SYRINGE IVP ONE; -fentaNYL (PF) 50 MCG/ML 2 ML AMP IV PRN
--- NOTE | 2020-01-31 08:09 | P.GSHP ---
History of Present Illness H&P Date: 01/31/20 CHIEF COMPLAINT: Colon screen HISTORY OF PRESENT ILLNESS: The patient is a 54-year-old female who presents for colon screen. Lower endoscopy was offered for further evaluation and management. PAST MEDICAL HISTORY: Please see list. PAST SURGICAL HISTORY: Please see list. MEDICATIONS: Please see list. ALLERGIES: Please see list. SOCIAL HISTORY: No illicit drug use FAMILY HISTORY: No reports of Crohn disease or ulcerative colitis. REVIEW OF ORGAN SYSTEMS: CONSTITUTIONAL: No reports of fevers or chills. PHYSICAL EXAM: VITAL SIGNS: Stable GENERAL: Well-developed pleasant in no acute distress. HEENT: No scleral icterus. Extraocular movements grossly intact. Moist buccal mucosa. NECK: Supple without lymphadenopathy. CHEST: Unlabored respirations. Equal bilateral excursions. CARDIOVASCULAR: Regular rate and rhythm. Distal 2+ pulses. ABDOMEN: Soft, nontender, nondistended. MUSCULOSKELETAL: No clubbing, cyanosis, or edema. ASSESSMENT: 1. Colon screen. PLAN: 1. Recommend proceeding with a lower endoscopy Past Medical History Past Medical History: Blood Disorder, COPD, Fibromyalgia, GERD/Reflux, Osteoarthritis (OA), Thyroid Disorder Additional Past Medical History / Comment(s): PAST HX OF MIGRAINES, KIDNEY STONES. DIVERTICULITIS W/ PERFORATION. hx. of HERNIATED DISC. "MILD COPD", PER CT SCAN. MTHFR GENE. SISTER HAS MTHFR ALSO, discomfort right side of abd. History of Any Multi-Drug Resistant Organisms: None Reported Past Surgical History: Appendectomy, Bariatric Surgery, Bowel Resection, Cholecystectomy, Hernia Repair Additional Past Surgical History / Comment(s): BOWEL RESECTION w/COLOSTOMY (SEPTEMBER 2014), REVERSAL (JAN 2015), D & C, LAPAROSCOPIES FOR PROBLEMS WITH INFERTILITY, 1 SALPINGECTOMY & BIIL OVARIES REMOVED. EGD. GASTRIC SLEEVE, incisional hernia repair Past Anesthesia/Blood Transfusion Reactions: No Reported Reaction, Motion Sickness Additional Past Anesthesia/Blood Transfusion Reaction / Comment(s): CLAUSTROPHOBIA. HARD IV START Smoking Status: Former smoker - Past Family History Sister(s) Family Medical History: Blood Disorder, Myocardial Infarction ([place]) Additional Family Medical History / Comment(s): MTHFR BLOOD DISORDER Father Family Medical History: Myocardial Infarction ([place]) Additional Family Medical History / Comment(s): HIP REPLACEMNET, LOW BP Mother Family Medical History: CVA/TIA, Diabetes Mellitus Additional Family Medical History / Comment(s): DIVERTICULITIS,MIGRAINES. Medications and Allergies Home Medications Medication Instructions Recorded Confirmed Type Psyllium Husk 100% [Metamucil 6 gm PO BID PRN 08/12/15 01/28/20 History Packet] Allergies Allergy/AdvReac Type Severity Reaction Status Date / Time rofecoxib [From Vioxx] AdvReac Unknown Swelling Verified 01/28/20 13:06
[2020-01-31 09:04] VITALS: TEMP 96.2
[2020-01-31 09:47] VITALS: RESP 17
--- NOTE | 2020-01-31 09:49 | P.PCN ---
Date of Procedure: 01/31/20 Description of Procedure: PREOPERATIVE DIAGNOSIS: History of ruptured diverticulitis Status post sigmoid colectomy History of colon polyps POSTOPERATIVE DIAGNOSIS: History of ruptured diverticulitis Status post sigmoid colectomy History of colon polyps OPERATION: Colonoscopy to the cecum, ileocecal valve and appendiceal orifice. SURGEON: Clair Sung MD. ANESTHESIA: MAC. INDICATIONS: The patient is a 54-year-old female who presents for colonoscopy screening. Last colonoscopy over 5 years ago Benefits and risks were described and informed consent was obtained. DESCRIPTION OF PROCEDURE: The patient had undergone Suprep. She had been brought into the operating room and laid in the left lateral decubitus position. After adequate intravenous sedation, the rectum was examined with 2% lidocaine jelly. No external hemorrhoids were encountered. The rectal tone was within normal limits. No l esions were palpated in the rectal vault. An Olympus colonoscope was advanced until the cecum, ileocecal valve and appendiceal orifice were clearly viewed. The prep was excellent. Scattered diverticulosis was encountered. The anastomosis was unremarkable at 20 cm from anal verge. No colonic polyps were found. No evidence of focal colitis was found. Retroflexion of the scope demonstrated grade 1 internal hemorrhoids without active bleeding or inflammation. The colon was desufflated. The patient had tolerated the procedure well. Withdrawal time was over 6 minutes. FINDINGS: Aronchick preparation quality scale 1 (1-5) Internal hemorrhoids, grade 1 No external prolapsed hemorrhoids. No arteriovenous malformations. No adenomatous polyps. No focal colitis. A few sigmoid diverticulosis RECOMMENDATIONS: Lower endoscopy in 2024 or Cologaurd Plan - Discharge Summary Discharge Rx Participant: No New Discharge Prescriptions: Continue Psyllium Husk 100% [Metamucil Packet] 6 gm PO BID PRN PRN Reason: Constipation Discharge Medication List Psyllium Husk 100% [Metamucil Packet] 6 gm PO BID PRN 08/12/15 [History] Follow up Appointment(s)/Referral(s): Clair Sung MD [STAFF PHYSICIAN] - 1 Week Patient Instructions/Handouts: Diverticulitis (DC), Diverticulitis Diet (DC) Activity/Diet/Wound Care/Special Instructions: Repeat colonoscopy 2024 Discharge Disposition: HOME SELF-CARE
[2020-01-31 09:58] VITALS: BP 118/65; PULSE 59
== END | disposition home or self-care (01) ==
LOC: ORWHC2ENDO 08:40
PROVIDERS: ATTEND Surgery Plastic and Reconstructive Surgery
DX: Z12.11 Encounter for screening for malignant neoplasm of colon (principal); K64.0 First degree hemorrhoids; K57.30 Diverticulosis of large intestine without perforation or abscess without bleeding; J44.9 Chronic obstructive pulmonary disease, unspecified; M79.7 Fibromyalgia; K21.9 Gastro-esophageal reflux disease without esophagitis; M19.90 Unspecified osteoarthritis, unspecified site; E07.9 Disorder of thyroid, unspecified; G43.909 Migraine, unspecified, not intractable, without status migrainosus; E72.12 Methylenetetrahydrofolate reductase deficiency; Z86.010 Personal history of colon polyps; Z87.442 Personal history of urinary calculi; Z90.49 Acquired absence of other specified parts of digestive tract; Z98.84 Bariatric surgery status; Z98.890 Other specified postprocedural states; Z93.3 Colostomy status; Z87.19 Personal history of other diseases of the digestive system; Z82.3 Family history of stroke; Z96.649 Presence of unspecified artificial hip joint; Z88.6 Allergy status to analgesic agent
CPT/HCPCS: J2001; J2704; G0121

== ENCOUNTER → 2020-03-04 | Outpatient (CLI) | payer OTHER | END | disposition home or self-care (01) | LOC: LABWHC1 16:12 | PROVIDERS: ATTEND Surgery Plastic and Reconstructive Surgery | DX: Z53.9 Procedure and treatment not carried out, unspecified reason (principal) ==

== ENCOUNTER 2020-03-14 12:49 | Day surgery (SDC) | payer OTHER ==
[2020-03-12 15:01] VITALS: BMI 36.6
--- NOTE | 2020-03-14 12:12 | P.GSHP ---
History of Present Illness H&P Date: 03/14/20 CHIEF COMPLAINT: Incisional hernia. HISTORY OF PRESENT ILLNESS: The patient is a 55-year-old female who presents with a history of swelling along the right upper abdomen. Findings were consistent with possible incisional hernia. Now she presents for further evaluation and management. PAST MEDICAL HISTORY: Please see list. PAST SURGICAL HISTORY: Please see list. MEDICATIONS: Please see list. ALLERGIES: Please see list. SOCIAL HISTORY: No illicit drug use FAMILY HISTORY: No reports of Crohn disease or ulcerative colitis. REVIEW OF ORGAN SYSTEMS: CONSTITUTIONAL: No reports of fevers or chills. GI: Denies any blood in stools or constipation. PHYSICAL EXAM: VITAL SIGNS: Stable GENERAL: Well-developed pleasant female in no acute distress. HEENT: No scleral icterus. Extraocular movements grossly intact. Moist buccal mucosa. NECK: Supple without lymphadenopathy. CHEST: Unlabored respirations. Equal bilateral excursions. CARDIOVASCULAR: Regular rate and rhythm. Distal 2+ pulses. ABDOMEN: Soft, nondistended. Tender along the right upper abdomen. Protuberant. MUSCULOSKELETAL: No clubbing, cyanosis, or edema. ASSESSMENT: 1. Incisional ventral hernia. 2. Morbid obesity, BMI 36.6 PLAN: 1. Recommend proceeding with robotic ventral hernia repair with mesh. 2. Benefits and risks of surgical intervention was discussed including possibility of open technique. 3. DVT prophylaxis. 4. Antibiotic prophylaxis. Past Medical History Past Medical History: Blood Disorder, COPD, Fibromyalgia, GERD/Reflux, Osteoarthritis (OA), Thyroid Disorder Additional Past Medical History / Comment(s): PAST HX OF MIGRAINES, KIDNEY STONES, DIVERTICULITIS W/ PERFORATION, HERNIATED DISC, "MILD COPD", PER CT SCAN. MTHFR GENE. History of Any Multi-Drug Resistant Organisms: None Reported Past Surgical History: Appendectomy, Bariatric Surgery, Bowel Resection, Cholecystectomy, Hernia Repair Additional Past Surgical History / Comment(s): BOWEL RESECTION w/COLOSTOMY (SEPTEMBER 2014), REVERSAL (JAN 2015), D & C, LAPAROSCOPIES FOR PROBLEMS WITH INFERTILITY, 1 SALPINGECTOMY & BILATERAL OVARIES REMOVED,EGD, GASTRIC SLEEVE, incisional hernia repair, colonoscopy. Past Anesthesia/Blood Transfusion Reactions: Motion Sickness Additional Past Anesthesia/Blood Transfusion Reaction / Comment(s): CLAUSTROPHOBIA. DIFFICULT IV START. Past Psychological History: Anxiety, Depression Additional Psychological History / Comment(s): PAST HX OF ANXIETY/DEPRESSION W/ PAST SURGERY. Smoking Status: Former smoker Past Alcohol Use History: Occasional Additional Past Alcohol Use History / Comment(s): Quit smoking in 1999, smoked for 20 years, 1PPD. Past Drug Use History: None Reported - Past Family History Sister(s) Family Medical History: Blood Disorder, Myocardial Infarction ([place]) Additional Family Medical History / Comment(s): MTHFR BLOOD DISORDER. Father Family Medical History: Myocardial Infarction ([place]) Additional Family Medical History / Comment(s): HIP REPLACEMNET, LOW BP. Mother Family Medical History: CVA/TIA, Diabetes Mellitus Additional Family Medical History / Comment(s): DIVERTICULITIS, MIGRAINES. Medications and Allergies Home Medications Medication Instructions Recorded Confirmed Type Psyllium Husk 100% [Metamucil 6 gm PO BID PRN 08/12/15 03/12/20 History Packet] Allergies Allergy/AdvReac Type Severity Reaction Status Date / Time rofecoxib [From Vioxx] AdvReac Unknown Swelling Verified 03/12/20 14:48
[~2020-03-14 12:49] MED LIST changes: +ACETAMINOPHEN TAB 500 MG TAB PO STA; +DEXAMETHASONE SOD PHOSPHATE 10 MG/ML 1 ML VIAL IV ONE; +GABAPENTIN 300 MG CAP PO STA; +HEPARIN SODIUM,PORCINE 5,000 UNIT/ML 1 ML VIAL SQ ONE; -LIDOCAINE 1% (10MG/ML) FOR IV START INTRADERMA ONE; +LIDOCAINE 1% (10MG/ML) FOR IV START INTRADERMA PRN; -LIDOCAINE 1% INJ 10MG/ML (20 ML MDV) ONE; +ONDANSETRON 4 MG/2 ML VIAL IVP ONE; -PROPOFOL 10 MG/ML 20 ML VIAL IV ONE; +SCOPOLAMINE 1.5MG/72HR PATCH TRANSDERM ONE; +SCOPOLAMINE 1.5MG/72HR PATCH TRANSDERM STA
[2020-03-14] MEDS ORDERED: MIDAZOLAM 2 MG/2 ML VIAL IV ONE (13:30)
--- NOTE | 2020-03-14 13:44 | P.ANPRN ---
Procedure Note - Anesthesia - Nerve Block Performed Bilateral Transversus Abdominis Single Time Out Performed: Yes Date of Procedure: 03/14/20 Procedure Start Time: 13:29 Procedure Stop Time: 13:37 Location of Patient: PreOp Indication: Acute Post-Operative Pain, Requested by Surgeon Sedation Type: Sedate with meaningful contact maintained Preparation: Sterile Prep Position: Supine Catheter: None Needle Types: Pajunk Needle Gauge: 21 Ultrasound used to visualize needle placement: Yes Ultrasound used to observe medication spread: Yes Injectate: 0.5% Ropivacaine (see comment for volume) (30 ml, plus decadron 4 mg) Blood Aspirated: No Pain Paresthesia on Injection Noted: No Resistance on Injection: Normal Image Stored and Saved: Yes Events: Uneventful and Well Tolerated
[2020-03-14] MEDS ORDERED: MIDAZOLAM 2 MG/2 ML VIAL ONE (14:27)
[2020-03-14] MEDS ORDERED: SUCCINYLCHOLINE CHLORIDE 100 MG/5 ML SYR IV ONE (14:27)
[2020-03-14] MEDS ORDERED: ROPIVACAINE 5 MG/ML 30 ML VIAL ONE (14:27)
[2020-03-14] MEDS ORDERED: fentaNYL (PF) 50 MCG/ML 2 ML AMP ONE (14:27)
[2020-03-14] MEDS ORDERED: PROPOFOL 10 MG/ML 20 ML VIAL IV ONE (14:27)
[2020-03-14] MEDS ORDERED: DEXAMETHASONE SOD PHOSPHATE 4 MG/ML 1 ML VIAL ONE (14:27)
[2020-03-14] MEDS ORDERED: KETOROLAC 15 MG/ML 1 ML VIAL ONE (14:27)
[2020-03-14] MEDS ORDERED: NEOSTIGMINE 1 MG/ML 10 ML VIAL ONE (14:27)
[2020-03-14] MEDS ORDERED: LIDOCAINE 1% INJ 10MG/ML (20 ML MDV) ONE (14:27)
[2020-03-14] MEDS ORDERED: ROCURONIUM 10 MG/ML (10 ML VIAL) IV ONE (14:27)
[2020-03-14] MEDS ORDERED: GLYCOPYRROLATE 0.2 MG/ML 2 ML VIAL ONE (14:27)
[2020-03-14] MEDS ORDERED: BUPIVACAINE (PF) 0.25% 30 ML VIAL SQ ONE (14:51)
[2020-03-14] MEDS ORDERED: LACTATED RINGERS 1,000 ML IV ONE (16:36)
[2020-03-14 16:50] VITALS: TEMP 98
[2020-03-14] MEDS: HYDROmorphone 0.5 MG/0.5 ML SYRINGE IVP PRN ×2 (16:58→17:09)
[2020-03-14] MEDS ORDERED: HYDROcodone/APAP 5-325MG 1 EACH TAB PO PRN (17:05)
--- NOTE | 2020-03-14 17:14 | P.OP ---
Date of Procedure: 03/14/20 Description of Procedure: SURGEON: CLAIR SUNG MD PREOPERATIVE DIAGNOSES: 1. Recurrent incisional ventral hernia with intermittent small bowel obstruction 2. Previous history of diverticulitis requiring descending colostomy at the left lower quadrant and subsequent reversal. 3. Obesity due to excess calories, BMI 38.2 5. Intra-abdominal peritoneal adhesions POSTOPERATIVE DIAGNOSES: 1. Recurrent incisional ventral hernia with intermittent small bowel obstruction 2. Previous history of diverticulitis requiring descending colostomy at the left lower quadrant and subsequent reversal. 3. Obesity due to excess calories, BMI 38.2 5. Intra-abdominal peritoneal adhesions OPERATION: 1. Robotic-assisted daVinci Xi laparoscopic repair of recurrent incarcerated incisional ventral hernia 3 x 3 cm with fascial imbrication 3 with mesh, 11.4 cm 2. Robotic-assisted daVinci Xi laparoscopic extensive lysis of adhesions over 1 hour ANESTHESIA: General with local ESTIMATED BLOOD LOSS: 10 mL. SPECIMENS: None. COMPLICATIONS: None. Operative Findings: 1. Severe intra-abdominal adhesions of omentum to abdominal wall including small bowel of entire abdomen 2. Extensive lysis of adhesions over 1 hour robotic-assisted approach 3. Recurrent right lower quadrant incisional hernia repair with incarceration of small bowel reduced INDICATIONS: The patient is a 55-year-old female who presents with incisional ventral hernia of the right lower quadrant. She has history of left lower quadrant hernia repair following a previous colostomy for diverticulitis. Surgical intervention with laparoscopic versus robotic and open techniques were reviewed. Placement of mesh was also reviewed. Benefits and risks were thoroughly described. Informed consent was obtained. DESCRIPTION OF PROCEDURE: The patient was brought into the operating room and laid in supine position. After general induction, the abdomen had been prepped and draped in standard sterile fashion. Ioban draping was also placed. Prior to incision, a timeout protocol was confirmed with surgical team regarding the patient's name including procedures to be performed. The robot was primed prior to the procedure. A field block using local anesthetis was placed along hernia site including the proposed port sites. Initial incision was made with an #11 blade along the left upper quadrant. A 0 degree 5 mm laparoscopic trocar entry was performed. Diagnostic laparoscopy demonstrated severe peritoneal adhesions along the midline; however the upper abdomen was free. Peritoneal adhesions of small bowel to the abdominal wall along the midline was identified. A 8 mm trocar was placed along the epigastrium and right upper quadrant. The 5- mm port was exchanged for an 8 mm robotic port. Placements of the ports were 20 cm from the target anatomy and 10 cm apart. The da Taqueria XI robot was previously primed, prepped and draped then docked along the right side of the patient. I then sat at the robot [employer] console where working arms of the robot including Bovie cautery connected to robotic scissors, vessel sealer and graspers placed by the assistant mechanic. Adhesions along the midline were lysed with scissors and vessel sealer including blunt dissection without enterotomies. Extensive lysis of adhesions of 1 hour was performed freeing the entire abdomen. Incarcerated small bowel contents was found along the right lower quadrant of 3 x 3 cm with the sac reduced and prior mesh placement cut to reduce and release the adhesion. Once all adhesions were cleared. A 12 mm laparoscopic trochars placed along the right lateral abdomen by the assistant mechanic. The hernia bordering fascia was cleaned of peritoneal fat. Next, hemostasis was checked with cautery. The hernia defect was oversewn using #1 nonabsorbable VLOC with fascial imbrication 3. Mesh placement using 11.4 cm mesh was overs ewn using nonabsorbable 2-0 VLOC. A final endoscopic imaging was obtained. All instruments and pneumoperitoneum were evacuated from the abdominal cavity. The [employer] XI robot was undocked from the patient. I re-scrubbed into the case for closure of incisions. The incisions were reapproximated using 4-0 Monocryl in an interrupted subcuticular fashion. Liquid glue was applied to the skin. At the end of the procedure, needle, sponge, and instrument count had been verified correct by assistant professor surgical technology. The patient was taken to the postanesthesia care unit in stable condition with abdominal binder. The patient's family was happy with the level of care. Plan - Discharge Summary Discharge Rx Participant: No New Discharge Prescriptions: New Acetaminophen Tab [Tylenol Tab] 1,000 mg PO Q6HR PRN #30 tablet Continue Psyllium Husk 100% [Metamucil Packet] 6 gm PO BID PRN PRN Reason: Constipation Discharge Medication List Psyllium Husk 100% [Metamucil Packet] 6 gm PO BID PRN 08/12/15 [History] Acetaminophen Tab [Tylenol Tab] 1,000 mg PO Q6HR PRN #30 tablet 03/14/20 [Rx] Follow up Appointment(s)/Referral(s): Clair Sung MD [STAFF PHYSICIAN] - 03/25/20 Patient Instructions/Handouts: *[facility] - Scopalamine Patch Instructions, *[facility] - Managing Your Pain After Surgery Without Opioids, Abdominal Binder (DC), Laparoscopic Herniorrhaphy (DC), Lysis of Abdominal Adhesions (DC) Activity/Diet/Wound Care/Special Instructions: Wear abdominal binder for comfort. Anticipate fullness along the right lower quadrant hernia site. Wearing the binder should help. No lifting over 10 pounds in 2 weeks until March 28. October shower. No bath tub soaks for two weeks until March 28. Diet as tolerated. Use Tylenol and ibuprofen scheduled for the next 24-48 hours for best pain relief. Use ice along incisions for the today to prevent swelling. Discharge Disposition: HOME SELF-CARE
[2020-03-14 17:38] VITALS: RESP 20
[2020-03-14 18:27] VITALS: BP 124/61; PULSE 93
== END 2020-03-14 19:03 | disposition home or self-care (01) ==
LOC: OR 12:49
PROVIDERS: ATTEND Surgery Plastic and Reconstructive Surgery
DX: K43.2 Incisional hernia without obstruction or gangrene (principal); K66.0 Peritoneal adhesions (postprocedural) (postinfection); K56.609 Unspecified intestinal obstruction, unspecified as to partial versus complete obstruction; Z87.19 Personal history of other diseases of the digestive system; E66.09 Other obesity due to excess calories; Z68.38 Body mass index [BMI] 38.0-38.9, adult; J44.9 Chronic obstructive pulmonary disease, unspecified; M79.7 Fibromyalgia; K21.9 Gastro-esophageal reflux disease without esophagitis; M19.90 Unspecified osteoarthritis, unspecified site; E07.9 Disorder of thyroid, unspecified; G43.909 Migraine, unspecified, not intractable, without status migrainosus; Z87.442 Personal history of urinary calculi; E72.12 Methylenetetrahydrofolate reductase deficiency; Z90.49 Acquired absence of other specified parts of digestive tract; Z98.84 Bariatric surgery status; Z98.890 Other specified postprocedural states; F40.240 Claustrophobia; F41.9 Anxiety disorder, unspecified; F32.9 Major depressive disorder, single episode, unspecified; Z87.891 Personal history of nicotine dependence; Z90.722 Acquired absence of ovaries, bilateral; Z83.2 Family history of diseases of the blood and blood-forming organs and certain disorders involving the immune mechanism; Z82.49 Family history of ischemic heart disease and other diseases of the circulatory system; Z83.3 Family history of diabetes mellitus; Z83.79 Family history of other diseases of the digestive system; Z82.0 Family history of epilepsy and other diseases of the nervous system; Z88.8 Allergy status to other drugs, medicaments and biological substances
CPT/HCPCS: 49329; 49657; S2900; 64488; 88302

== ENCOUNTER → 2021-09-21 | Outpatient (CLI) | payer MEDICAID ==
--- NOTE | 2021-09-21 15:08 | XR ---
EXAMINATION TYPE: XR Hip Complete RT DATE OF EXAM: 09/21/2021 COMPARISON: X-ray dated 01/08/2016 INDICATION: Pain for one year TECHNIQUE: 2 views of the right hip FINDINGS: Mild degenerative changes of the right hip joint with subchondral cyst formation. No definite acute f racture line identified. No femoral head dislocation or significant subluxation. Osteopenia. IMPRESSION: No right hip fracture or dislocation. Mild degenerative changes of the right hip joint as described a antonia.
== END | disposition home or self-care (01) ==
LOC: RADXRYALE 10:39
PROVIDERS: ATTEND Physician Assistant Medical
DX: M16.11 Unilateral primary osteoarthritis, right hip (principal)
CPT/HCPCS: 73502

== ENCOUNTER 2024-01-09 19:50 | Emergency (ER) | payer OTHER ==
[~2024-01-09 19:50] MED LIST changes: -ACETAMINOPHEN TAB 500 MG TAB PO STA; -DEXAMETHASONE SOD PHOSPHATE 10 MG/ML 1 ML VIAL IV ONE; -GABAPENTIN 300 MG CAP PO STA; -HEPARIN SODIUM,PORCINE 5,000 UNIT/ML 1 ML VIAL SQ ONE; -LACTATED RINGERS 1,000 ML IV SCH; -LIDOCAINE 1% (10MG/ML) FOR IV START INTRADERMA PRN; -ONDANSETRON 4 MG/2 ML VIAL IVP ONE; -SCOPOLAMINE 1.5MG/72HR PATCH TRANSDERM ONE; -SCOPOLAMINE 1.5MG/72HR PATCH TRANSDERM STA; +SODIUM CHLORIDE 0.9% 1,000 ML BAG ONE
[2024-01-10] MEDS ORDERED: METOCLOPRAMIDE 5 MG/ML 2 ML VIAL ONE (01:32)
[2024-01-10] MEDS ORDERED: KETOROLAC 15 MG/ML 1 ML VIAL ONE (01:32)
[2024-01-10] MEDS ORDERED: diphenhydrAMINE 50 MG/ML 1 ML VIAL ONE (01:32)
[2024-01-10] MEDS ORDERED: MORPHINE SULFATE 4 MG/ML SYRINGE ONE (03:23)
[2024-01-10] MEDS ORDERED: ACET/COD 300 MG/30 MG STARTER PACK 6 TAB BTL PO ONE (03:34)
--- NOTE | 2024-02-08 15:55 | CT ---
EXAM: CT Head Without Intravenous Contrast CLINICAL HISTORY: frontal LT sided facial pain-radiates down into mandible TECHNIQUE: Axial computed tomography images of the head/brain without intravenous contrast. CTDI is 22.6 mGy and DLP is 659 mGy-cm. This CT exam was performed using one or more of the following dose reduction techniques: automated exposure control, adjustment of the mA and/or kV according to patient size, and/or use of iterative reconstruction technique. COMPARISON: No relevant prior studies available. FINDINGS: Brain:No hemorrhage or mass effect. Ventricles:No hydrocephalus. Bones/joints:Unremarkable. Soft tissues:Unremarkable. Sinuses:No air fluid level. Mastoid air cells:Clear. IMPRESSION: No acute hemorrhage, hydrocephalus, or mass effect. Radiologist: Neville Parnell MD Electronically Signed: 01/10/24 02:34 Study ready at 02:15 and initial results transmitted at 02:34 [facility]
--- NOTE | 2024-02-08 15:56 | CT ---
EXAM: CT Head and Maxillofacial Without Intravenous Contrast CLINICAL HISTORY: frontal LT sided facial pain-radiates down into mandible TECHNIQUE: Axial computed tomography images of the head/brain and face without intravenous contrast. CTDI is 22.6 mGy and DLP is 659 mGy-cm. This CT exam was performed using one or more of the following dose reduction techniques: automated exposure control, adjustment of the mA and/or kV according to patient size, and/or use of iterative reconstruction technique. COMPARISON: No relevant prior studies available. FINDINGS: Bones/joints:No acute fracture. Soft tissues:Unremarkable. Sinuses:No acute sinusitis. Mastoid air cells:No mastoid effusion. Orbits:Unremarkable. IMPRESSION: No acute fracture. Radiologist: Neville Parnell MD Electronically Signed: 01/10/24 02:59 [facility]
== END 2024-01-10 04:05 | disposition home or self-care (01) ==
LOC: EC 19:50
DX: G50.0 Trigeminal neuralgia (principal)
CPT/HCPCS: 36415; 80053; 85652; 85025; 70486; 70450; 96375; 96361; 99284; 96374; J2270; J1200; J2765; J1885